=== PATIENT | female | born 1990 | race Caucasian/White ===

== ENCOUNTER 2023-09-07 13:49 | Emergency (ER) | payer OTHER, SELFPAY ==
[2023-09-07 14:18] VITALS: BP 141/96; PULSE 104; RESP 18; TEMP 36.9; O2SAT 99; BMI 34.0
[2023-09-07 16:15] VITALS: BP 130/86; PULSE 92; RESP 18; O2SAT 98
--- NOTE | 2023-09-07 16:59 | ED.NURSE ---
patient is currently pain free and when has the pain is sharp in the upper left hand side of the chest. placed on air sampling and monitoring, pulse ox, and bp cuff monitoring.
[2023-09-07 17:00] VITALS: BP 118/97; PULSE 103; RESP 19; O2SAT 97
[2023-09-07 17:00] LABS: Basophils Percent Auto 0.3 % (0.0-3.0); Eosinophils Percent Auto 0.5 % (0.0-7.0); Hematocrit 41.4 % (33.0-51.0); Hemoglobin* 14.1 gm/dL (12.0-16.0); Immature Granulocytes Pct Auto 0.3 %; Lymphocytes Percent Auto 33.3 % (20-44); Mean Corpuscular HGB Conc 34 gm/dL (32-36); Mean Corpuscular Hemoglobin 28 pg (26-34); Mean Corpuscular Volume 81 fL (80-100); Monocytes Percent Auto 6.3 % (0.0-11.0); Neutrophils Percent Auto 59.3 % (42.0-72.0); Platelet Count* 442 K/uL (140-440); RDW Coefficient of Variation % 12.5 % (11.5-15.5); Red Blood Count 5.09 m/uL (4.00-5.20)
[2023-09-07 17:02] LABS: Slide Review Reflex No
--- NOTE | 2023-09-07 17:07 | ED_ITS ---
HPI - Chest Pain General Date Seen: 09/07/23 Chief Complaint: Chest Pain Stated Complaint: Intermittent chest pain-L fingers tingly Time Seen by Provider: 09/07/23 16:12 Source: patient Mode of arrival: ambulatory Limitations: no limitations History of Present Illness HPI narrative: Patient is a 32-year-old female presenting to the emergency department for chest pain. She states for the past day she has been having left-sided chest pain. It is right over her left precordial region. Does not radiate anywhere. For started last night is been intermittent since then. States it is a sharp pain they will last for a few minutes at a time. The symptoms then go away. When it does occur it is painful to take a deep breath. She denies having symptoms like this before. Did notice today symptoms came back and her left arm had tingling sensation. She called urgent care was told to come to the emergency department for evaluation. She has had her heart worked up in the past for sinus tachycardia and everything was normal. Was told it is probably long COVID. She also has issues of anxiety and is unsure of anxiety was causing the symptoms. Is not sure if she gets short of breath when it occurs but does state she takes shallow breaths due to the pain. Denies lightheadedness, dizziness, fevers, chills, weakness, numbness, abdominal pain. No history of blood clots. No recent surgeries or trauma. Has not noticed any lower extremity swelling. Is not currently on control. No other heart issues in her history. No other concerns noted at this time. She is currently asymptomatic Related Data Home Medications Medication Instructions Recorded Confirmed lisdexamfetamine 30 mg capsule 30 mg PO QAM 09/07/23 09/07/23 (Vyvanse) oxcarbazepine 300 mg tablet 300 mg PO QDAY 09/07/23 09/07/23 Allergies Allergy/AdvReac Type Severity Reaction Status Date / Time No Known Drug Allergies Allergy Verified 09/07/23 13:21 Review of Systems Status of ROS Reports: 10 or more systems reviewed and unremarkable except as noted in History and below [facility] Social History Smoking Status: Never smoker How often do you have a drink containing alcohol: never AUDIT-C Alcohol total score: 0 Non-prescribed substance use: denies use Exam Narrative Exam Narrative: Const: Well-nourished, Well-developed, in no distress Eyes: PERRL, no conjunctival injection, and symmetrical lids HENT: Atraumatic external nose and ears. Moist mucous membranes. Neck: Symmetric, trachea midline, No thyromegaly. CVS: RRR, No murmurs or gallops. Peripheral pulses 2+ and equal in all extremities RESP: Unlabored respiratory effort. Clear to auscultation bilaterally. GI: Nontender/Nondistended, No rebound or guarding. MSK:Extremities w/o deformity, Normal Active ROM Skin: Warm, Dry. No rashes or lesions. Neuro: Normal Muscle tone, No focal neurological deficits. Psych: Awake, Alert, & Oriented x3. Appropriate mood and affect. Const Vital Signs, click to edit/add: Vital Signs - 24 hr 09/07/23 14:18 09/07/23 16:15 09/07/23 17:00 Temperature 98.5 F Pulse Rate [Pulse Oximeter] 104 H 92 103 H Respiratory Rate 18 18 19 Blood Pressure [Right Upper Arm] 141/96 H 130/86 118/97 H Pulse Oximetry 99 98 97 Oxygen Delivery Method Room Air Room Air Room Air 09/07/23 17:30 09/07/23 18:00 Temperature Pulse Rate [Pulse Oximeter] 101 H 94 Respiratory Rate 10 L 17 Blood Pressure [Right Upper Arm] 125/87 130/84 Pulse Oximetry 99 99 Oxygen Delivery Method Room Air Room Air Course Vital Signs Vital signs: Initial Vital Signs Temperature 98.5 F 09/07/23 14:18 Temperature Source Temporal Artery Scan 09/07/23 14:18 Pulse Rate 104 H 09/07/23 14:18 Pulse Rhythm Regular 09/07/23 14:18 Respiratory Rate 18 09/07/23 14:18 Blood Pressure 141/96 H 09/07/23 14:18 Blood Pressure Mean 111 H 09/07/23 14:18 Blood Pressure Position Sitting 09/07/23 14:18 Pulse Oximetry 99 09/07/23 14:18 Oxygen Delivery Method Room Air 09/07/23 14:18 Vital Signs Temperature 98.5 F 09/07/23 14:18 Pulse Rate 104 H 09/07/23 14:18 Respiratory Rate 18 09/07/23 14:18 Blood Pressure 141/96 H 09/07/23 14:18 Pulse Oximetry 99 09/07/23 14:18 Oxygen Delivery Method Room Air 09/07/23 14:18 Temperature 98.5 F 09/07/23 14:18 Pulse Rate 94 09/07/23 18:00 Respiratory Rate 17 09/07/23 18:00 Blood Pressure 130/84 09/07/23 18:00 Pulse Oximetry 99 09/07/23 18:00 Oxygen Delivery Method Room Air 09/07/23 18:00 MDM - Chest Pain MDM Narrative Medical decision making narrative: Patient is a 32-year-old female presenting to emergency department for chest pain. She cannot be PERC ed out due to her tachycardia when she 1st arrived. While PE seems unlikely D-dimer was ordered. Chest x-ray ordered to look for signs of pneumonia or pneumothorax. Most flu ACS workup including EKG troponins. CBC and BMP ordered along with a test. test is negative. Lab work returned showing no concerning abnormalities. Heart rate improved while waiting in in her room. EKG done showing no concerning findings. Chest x-ray viewed by myself and the radiologist showed no concerning findings. Troponin within normal limits. CBC and BMP showed no concerning findings. She continues to be asymptomatic throughout her time in the emergency department. This time she is doing well I believe she is safe for discharge. I cannot say researching was causing her pain does not appear to be anything emergent. Lab Data Labs: Lab Results 09/07/23 Range/Units 16:45 WBC 11.10 H (4.50-11.00) K/uL RBC 5.09 (4.00-5.20) m/uL Hgb 14.1 (12.0-16.0) gm/dL Hct 41.4 (33.0-51.0) % MCV 81 (80-100) fL MCH 28 (26-34) pg MCHC 34 (32-36) gm/dL RDW Coeff of Fady 12.5 (11.5-15.5) % Plt Count 442 H (140-440) K/uL Neut % (Auto) 59.3 (42.0-72.0) % Lymph % (Auto) 33.3 (20-44) % Union % (Auto) 6.3 (0.0-11.0) % Eos % (Auto) 0.5 (0.0-7.0) % Baso % (Auto) 0.3 (0.0-3.0) % Neut # (Auto) 6.60 (1.7-7.0) K/uL Lymph # (Auto) 3.70 H (0.90-2.90) K/uL Union # (Auto) 0.70 (0.00-0.90) K/UL Eos # (Auto) 0.10 (0.00-0.50) K/uL Baso # (Auto) 0.00 (0.00-0.30) K/uL Abs Immat Gran (auto) 0.00 (0.00-0.30) K/uL Imm/Tot Granulo (auto) 0.3 % D-Dimer Quant (PE/DVT) 0.31 (0.00-0.50) ug/ml Sodium 139 (135-149) mmol/L Potassium 3.6 (3.6-5.1) mmol/L Chloride 105 (96-114) mmol/L Carbon Dioxide 20 (20-32) mmol/L Anion Gap 14 (7-15) mEq/L BUN 9 (5-24) mg/dL Creatinine 0.6 (0.5-1.5) mg/dL Estimated Creat Clear 112.38 Estimated GFR 123 ml/min Glucose 96 (60-115) mg/dL Calcium 10.5 (8.4-10.6) mg/dL HCG, Qual Negative (Negative) POC Troponin I 0.00 L (0.01-0.04) ng/ml Imaging Data Chest x-ray: Radiologist's impression: No acute or significant findings. Dictated by Cruzito Fournier MD @ 09/07/2023 6:23:59 PM ECG Data Attestation: I personally reviewed and interpreted this ECG as follows: Prior ECG tracings: not available for review Interpretation: Normal sinus rhythm with a rate of 86 beats per minute, normal intervals, normal axis, no ST or T-wave abnormalities Discharge Plan Discharge Clinical Impression: Atypical chest pain Patient Disposition: Home, Self-Care Condition: Stable Instructions: Noncardiac Chest Pain (ED) Additional Instructions: While I cannot say for certain was causing his chest pain it does not appear to be anything emergent. Return to the emergency department for new or worsening symptoms Prescriptions: No Action lisdexamfetamine [Vyvanse] 30 mg capsule 30 mg PO QAM oxcarbazepine 300 mg tablet 300 mg PO QDAY Follow Up/Referrals: Provider,Not a Local [Primary Care Provider] - Stand Alone Forms: [employer] Info Instructions
[2023-09-07 17:19] LABS: Chloride* 105 mmol/L (96-114)
[2023-09-07 17:20] LABS: HCG Qualitative Serum* Negative (Negative); Potassium* 3.6 mmol/L (3.6-5.1); Sodium* 139 mmol/L (135-149)
[2023-09-07 17:22] LABS: Creatinine* 0.6 mg/dL (0.5-1.5); Est. Creatinine Clearance* 112.38; Estimated Glomerular Filt Rate 123 ml/min
[2023-09-07 17:23] LABS: Anion Gap 14 mEq/L (7-15); Blood Urea Nitrogen* 9 mg/dL (5-24); Calcium* 10.5 mg/dL (8.4-10.6); Carbon Dioxide* 20 mmol/L (20-32); D Dimer Quantitative* 0.31 ug/ml (0.00-0.50); Glucose* 96 mg/dL (60-115)
[2023-09-07 17:30] VITALS: BP 125/87; PULSE 101; RESP 10; O2SAT 99
--- NOTE | 2023-09-07 17:43 | XR_ITS ---
Final Report Patient: KARY MCKEE Facility:?[facility] Patient ID:?[id number] Site Patient ID:?[id number] Site :?[id number] Study:?XRay Chest 2 IMAGES-09/07/2023 5:55:25 PM Ordering Physician:JHONATAN Final Report: INDICATION: Intermittent CP. TECHNIQUE: Chest 2 views. COMPARISON: None. FINDINGS: Cardiovascular and mediastinum: Cardiomediastinal silhouette is within normal limits Lungs and pleural spaces: Lungs are clear. No sign of pleural effusion. No pneumothorax. Bones and soft tissues: No significant findings. IMPRESSION: No acute or significant findings. Dictated by Cruzito Fournier MD @ 09/07/2023 6:23:59 PM (Electronic Signature)
[2023-09-07 18:00] VITALS: BP 130/84; PULSE 94; RESP 17; O2SAT 99
== END 2023-09-07 18:56 | disposition home or self-care (01) ==
PROVIDERS: Emergency Provider Student in an Organized Health Care Education/Training Program
DX: R07.9 Chest pain, unspecified (principal)
CPT/HCPCS: 36415; 71046; 80048; 84484; 84703; 85025; 85379; 99283; 99284